=== PATIENT | male | born 1995 ===

== ENCOUNTER 2018-06-07 06:21 | Inpatient (IN) | payer MEDICAID, OTHER ==
[2018-06-07] MEDS ORDERED: LORazepam 2 MG/ML INJ ONE ×3 (06:26→07:52)
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
[2018-06-07 06:41] LABS: PLATELET COUNT 347 10^3/uL (150-400)
[2018-06-07] MEDS ORDERED: IOPAMIDOL (ISOVUE-300) 100 ML BTL ONE (06:41)
[2018-06-07 06:51] LABS: INR 1.27 (0.83-1.16); PROTIME(PATIENT) 16.1 SEC (12.0-15.0)
[2018-06-07] MEDS ORDERED: TDAP ADULT 0.5 ML INJ (BOOSTRIX) IM ONE (07:06)
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
[2018-06-07] MEDS ORDERED: HYDROCODONE/APAP 5/325 TAB PO PRN (15:47)
[2018-06-07] MEDS ORDERED: ACETAMINOPHEN 325 MG TAB PO PRN (15:47)
[2018-06-07] MEDS ORDERED: ONDANSETRON 4 MG/2 ML VIAL IVP PRN (15:47)
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
--- NOTE | 2018-06-07 16:39 | ASMTCMCOM ---
CM Note CM Note Notes: Pt's , Jarad Lange ([phone]) and other family/ friends arrived to the ED earlier this afternoon and this CM spoke with them and explained that we would need verbal permission from pt's mother, Dagmar ([phone]) first in order to provide any medical updates to her. Spoke w/pt's mother, Dagmar and she gave verbal permission to provide medical updates to Jarad Lange and pt's other brother, Kristopher Antoine, if he were to call in requesting updates. After DOC officers were released from staying w/the patient, it was confirmed w/Officer Alexandra w/[employer] that per their dept it was okay if patient wanted to have visitors. This CM called Dagmar to notify her but was unable to get through; spoke w/Jarad and notified her of pt's medical status and that he can now have visitors. Jarad says she will let Dagmar know. Dagmar is still at [facility] w/her other son. Jessica SHANE completed a Law Enforcement Attestation and Verification for PHI Disclosures (FORM IV) and so they are to be notified when patient is going to be discharged. Exact DC needs unknown, CM to follow. Date Signed: 06/07/2018 04:39 PM Electronically Signed By:Candice Dutton RN
--- NOTE | 2018-06-07 18:00 | ASMTCMCOM ---
CM Note CM Note Notes: Update regarding patient's visitor and Confidential status: Pt still has two [employer] officers monitoring pt and they have clarified/confirmed that patient cannot have visitors. Spoke w/ARN and confirmed this communication and also that pt will be made Confidential again. This CM spoke with pt's mother Dagmar and pt's , Jarad, to inform them that patient cannot have visitors as previously thought. They said they would like to be notified if that status changes. CM to follow Date Signed: 06/07/2018 05:59 PM Electronically Signed By:Candice Dutton RN
[2018-06-07] MEDS: IBUPROFEN 600 MG TAB PO SCH (21:16)
[2018-06-07] MEDS: BACITRACIN ZINC 14.2 GM OINTTUBE TP SCH (21:17)
[2018-06-08] MEDS: IBUPROFEN 600 MG TAB PO SCH ×2 (06:18→14:10)
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
[2018-06-08] MEDS: BACITRACIN ZINC 14.2 GM OINTTUBE TP SCH (11:18)
--- NOTE | 2018-06-08 11:41 | WOCRNPDOC ---
WOCRN Advanced Assessment Note - Skin Integrity Problem, Advanced Assess Right Posterior Head Laceration Dressing Type: Open to Air Closure Description: [place], Approximated Exudate Amount: None Rosario Wound Swelling: None Site Odor: None Skin Integrity Problem Comment: Laceration is well approximated with gladis. No open wound for wound care to manage. Amelia LOPEZ in room for assessment. Wound care will sign off on this wound, please reconsult PRN.
[2018-06-08 12:09] VITALS: BP 93/51
--- NOTE | 2018-06-08 13:33 | PDIAF ---
- Diagnosis Diagnosis: concussion, scalp laceration, wrist pain Code Status: Full Code - Medication Management Discharge Medications: Medications to Continue on Transfer Acetaminophen [Tylenol 325mg (*)] 325 - 650 mg PO Q4HRS PRN tab 06/08/18 [Last Taken Unknown] Bacitracin Zinc [Bacitracin Ointment Tube] 1 belen TP BID oint 06/08/18 [Last Taken Unknown] Ibuprofen [Motrin (*)] 600 mg PO Q8HRS tab 06/08/18 [Last Taken Unknown] Discharge Medications: Refer to the Discharge Home Medication list for PRN reason. - Orders Diet Recommendation: no restrictions on diet Sutures/Gypsum Site: scalp Date to Remove Sutures/Gypsum: 06/17/18 Activity/Weight Bearing Restrictions: no limitations. huang bandage for comfort L wrist if needed Additional Instructions: Concussion precautions, low stimulation May wear huang wrap for comfort on left wrist if needed Bacitracin on scalp wound daily Remove gladis 06/17/2018 - Follow Up Care Current Providers and Referrals: Patient,NotPresent [Primary Care Provider] - As per Instructions Beatriz Dai MD [Medical Doctor] - (for staple removal 06/17 or can remove in facility. I am happy to see him if needed)
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
--- NOTE | 2018-06-08 16:39 | ASMTLACE ---
LACE Length of stay for Answers: 2 days current admission Acuity / Level of Answers: Yes Care: Did the patient have an inpatient admission? # of Emergency department Answers: 1-2 visits in the last 6 months Social determinants Answers: History of substance abuse (ETOH, street drugs, prescription drugs, etc.) Score: 9 Date Signed: 06/08/2018 04:38 PM Electronically Signed By:Shadia Correa RN
--- NOTE | 2018-06-08 16:41 | ASMTCMCOM ---
CM Note CM Note Notes: Patient discharged today independently in the custody of the [place] [employer]. Clothes provided by CM. Case discussed with MD and RN. No other needs identified. Date Signed: 06/08/2018 04:40 PM Electronically Signed By:Shadia Correa RN
== END 2018-06-08 15:15 | DRG 57 ==
LOC: EDUNIT# → EEVIPCON 06:21 → F3N 10:35
PROVIDERS: ADMIT Surgery; ATTEND Surgery
PROC: 0HQ0XZZ Repair Scalp Skin, External Approach (ICD-10-PCS; principal; 2018-06-07)
DX: S06.0X0A Concussion without loss of consciousness, initial encounter (principal); F15.90 Other stimulant use, unspecified, uncomplicated; S01.01XA Laceration without foreign body of scalp, initial encounter; S63.502A Unspecified sprain of left wrist, initial encounter; V47.0XXA Car driver injured in collision with fixed or stationary object in nontraffic accident, initial encounter; R40.2411 Glasgow coma scale score 13-15, in the field [EMT or ambulance]
CPT/HCPCS: 80305; 92523-GN; 97161-GP; 97165-GO; G0480; J2060; L0120; Q9967